=== PATIENT | female | born 1970 | race Caucasian/White ===

== ENCOUNTER 2018-07-16 06:05 | Day surgery (SDC) | payer BC ==
[~2018-07-16] VITALS: Ht 162.6 cm; Wt 74.4 kg
[2018-07-16] MEDS ORDERED: CEFAZOLIN SOD 1 GM in D5W 50 ML IV ONE (07:00)
[2018-07-16] MEDS ORDERED: CEFAZOLIN 2 GM IVPB PREMIX 50 ML IV ONE (07:30)
[2018-07-16] MEDS ORDERED: PROPOFOL 200MG/ 20ML VIAL (DIPRIVAN) IV ONE (07:30)
[2018-07-16] MEDS ORDERED: ONDANSETRON HCL 4 MG/2 ML VIAL IVP ONE (07:30)
[2018-07-16] MEDS ORDERED: ROPIVACAINE HCL/PF 0.2% (NAROPIN) 200 ML PLAST..BAG EP ONE (07:30)
[2018-07-16] MEDS ORDERED: MIDAZOLAM HCL 5 MG/5 ML VIAL IVP ONE (07:30)
[2018-07-16] MEDS ORDERED: NS 1000 ML IV.SOLN IV ONE (07:30)
[2018-07-16] MEDS ORDERED: ROCURONIUM BROMIDE 10 MG/ML (ZEMURON) IV ONE (07:30)
[2018-07-16] MEDS ORDERED: SEVOFLURANE 15 MIN GAS INH ONE (07:30)
[2018-07-16] MEDS ORDERED: BUPIVACAINE /PF 0.25% 30 ML VIAL INJ ONE (07:30)
[2018-07-16] MEDS ORDERED: WATER FOR IRRIGATION,STERILE 1,000 ML IRRIG.SOLN IR ONE (07:30)
[2018-07-16] MEDS ORDERED: ROPIVACAINE HCL/PF 5 MG/ML 0.5% 30 ML VIAL INFIL ONE (07:30)
[2018-07-16] MEDS ORDERED: KETOROLAC TROMETHAMINE 30 MG VIAL IVP ONE (07:30)
[2018-07-16] MEDS ORDERED: fentaNYL CITRATE 250 MCG/5 ML AMP IV ONE (07:30)
[2018-07-16] MEDS ORDERED: LR 1,000 ML IV.SOLN IV ONE (07:30)
[2018-07-16] MEDS ORDERED: LR 1,000 ML IV SCH (08:44)
[2018-07-16] MEDS ORDERED: MORPHINE 4 MG/ML INJ. SYRINGE IVP PRN ×3 (08:45)
[2018-07-16] MEDS ORDERED: ONDANSETRON HCL 4 MG/2 ML VIAL IVP PRN ×2 (08:45→10:30)
[2018-07-16] MEDS ORDERED: PROMETHAZINE HCL 25 MG/ML AMP IM PRN ×2 (10:30)
[2018-07-16] MEDS ORDERED: HYDROmorphone 2 MG TAB PO PRN (10:30)
[2018-07-16] MEDS ORDERED: OXYCODONE/ACETAMINOPHEN 5-325 TABLET PO PRN (10:30)
[2018-07-16] MEDS ORDERED: MORPHINE 4 MG/ML INJ. SYRINGE ONE (11:23)
[2018-07-16] MEDS ORDERED: KETOROLAC TROMETHAMINE 30 MG VIAL IVP SCH (12:00)
[2018-07-16 12:49] VITALS: BP_SYST 131
== END 2018-07-16 14:15 | disposition home or self-care (01) ==
LOC: SDS 06:05 → SMU 06:05 → SDS 14:15
PROVIDERS: ATTEND Obstetrics & Gynecology
DX: D25.9 Leiomyoma of uterus, unspecified (principal); N83.8 Other noninflammatory disorders of ovary, fallopian tube and broad ligament; Z85.038 Personal history of other malignant neoplasm of large intestine; Z98.890 Other specified postprocedural states; J30.9 Allergic rhinitis, unspecified; E78.5 Hyperlipidemia, unspecified; K29.70 Gastritis, unspecified, without bleeding; E03.9 Hypothyroidism, unspecified; D50.0 Iron deficiency anemia secondary to blood loss (chronic); Z68.32 Body mass index [BMI] 32.0-32.9, adult; E55.9 Vitamin D deficiency, unspecified; Z79.899 Other long term (current) drug therapy; E66.3 Overweight
CPT/HCPCS: 36415; 58573; 86886; 86900; 86901; 88307; J0690 ×2; J1885; J2250; J2270; J2405; J2704; J3010; J3490; J7030; J7060; J7120; E0190